=== PATIENT | female | born 1940 | race African-American/Black ===

== ENCOUNTER 2016-07-18 19:50 | Emergency (ER) | payer OTHER ==
[2016-07-18 19:57] VITALS: TEMP 98.6; BMI 36.6
[2016-07-18 19:58] VITALS: BP 148/82; PULSE 60
--- NOTE | 2016-07-18 21:16 | PDOC ---
History of Present Illness - General History Source: Patient Exam Limitations: No Limitations - History of Present Illness Initial Comments: 07/18/16 21:20 The patient is a 76 year old female, with a significant past medical history of hypertension, colon polyps, GERD, and diverticulosis, who presents to the emergency department s/p mechanical fall at approximately 14:30. Patient reports she was walking down the steps in the parking lot when she tripped and she fell down approximately 4 steps. She states she tried to hold onto the handrails but was unsuccessful. Patient reports falling onto her right knee, but she is experiencing pain in her legs bilaterally. She reports associated head trauma but denies LOC. She reports pain in her knees bilaterally, her left shoulder, and her neck. Patient reports she is able to walk and bare weight on her legs. The patient denies any chest pain, shortness of breath, diaphoresis, or palpitations. The patient denies any cough, headache, dizziness, fever, or chills. The patient denies any abdominal pain, nausea, vomiting, diarrhea, or constipation. The patient denies any recent travel or sick contacts. Allergies: None reported. Past Surgical History: Left knee replacement. Social History: Non-smoker. Denies alcohol or drug use. <Hermann Ward - Last Filed: 07/18/16 21:41> <Christina Raphael - Last Filed: 07/19/16 04:48> - General Chief Complaint: Pain, Acute Stated Complaint: FALL Time Seen by Provider: 07/18/16 19:54 Past History <Hermann Ward - Last Filed: 07/18/16 21:41> - Past Medical History Anemia: No Asthma: No Cancer: No Cardiac Disorders: No CVA: No COPD: No CHF: No Dementia: No Diabetes: No GI Disorders: Yes (H/O COLON POLYPS, ACID REFLUX, DIVERITCULOSIS) Disorders: No HTN: Yes Hypercholesterolemia: No Liver Disease: No Seizures: No Thyroid Disease: No - Surgical History Abdominal Surgery: No Appendectomy: No Cardiac Surgery: No Cholecystectomy: No Lung Surgery: No Neurologic Surgery: No Orthopedic Surgery: Yes (LEFT KNEE REPLACEMENT) - Psycho/Social/Smoking Cessation Hx Anxiety: No Suicidal Ideation: No Smoking History: Never smoked Have you smoked in the past 12 months: No If you are a former smoker, when did you quit?: 1996 Information on smoking cessation initiated: No Hx Alcohol Use: No Drug/Substance Use Hx: No Substance Use Type: None Hx Substance Use Treatment: No <Christina Raphael - Last Filed: 07/19/16 04:48> - Past Medical History Allergies/Adverse Reactions: Allergies Allergy/AdvReac Type Severity Reaction Status Date / Time No Known Allergies Allergy Verified 07/18/16 19:51 Home Medications: Ambulatory Orders Losartan/Hydrochlorothiazide [Losartan-Hctz 100-25 mg Tab] 1 each PO HS Diclofenac Sodium [Voltaren -] 75 mg PO BID PRN #10 tablet. 07/18/16 Review of Systems - Review of Systems Able to Perform ROS?: Yes Comments:: 07/18/16 21:21 CONSTITUTIONAL: Absent: fever, no chills, no fatigue EYES: Absent: visual changes ENT: Absent: ear pain, no sore throat CARDIOVASCULAR: Absent: chest pain, no palpitations RESPIRATORY: Absent: cough, no SOB GI: Absent: abdominal pain, no nausea, no vomiting, no constipation, no diarrhea GENITOURINARY: Absent: dysuria, no frequency, no hematuria MUSKULOSKELETAL: Present: +leg pain bilaterally, +knee pain bilaterally, +left shoulder pain, + neck pain Absent: back pain, no myalgia SKIN: Absent: rash NEURO: Absent: headache <Ward,Giomilsy - Last Filed: 07/18/16 21:41> *Physical Exam - Vital Signs Last Vital Signs Temp Pulse Resp BP Pulse Ox 98.6 F 60 17 148/82 100 07/18/16 19:50 07/18/16 19:50 07/18/16 19:50 07/18/16 19:50 07/18/16 19:50 - Physical Exam Comments: 07/18/16 21:37 GENERAL: The patient is awake, alert, and fully oriented, in no acute distress. HEAD: Mild tenderness of the left occipital parietal area without abrasion, laceration or contusion. No other facial or head abnormalities EYES: Pupils equal, round and reactive to light, extraocular movements intact, sclera anicteric, conjunctiva clear with no pallor. ENT: Ears normal, nares patent, oropharynx clear without exudates. Moist mucous membranes. NECK: Mild tenderness to the central portion of C3-C5. Normal range of motion, supple without lymphadenopathy, JVD, or masses. LUNGS: Breath sounds equal, clear to auscultation bilaterally. No wheeze/ crackles. HEART: Regular rate and rhythm, normal S1 and S2 without murmur or rub. ABDOMEN: Soft/nontender/nondistended. BS wnl. No guarding or rebound. No palpable masses. No hepatosplenomegaly. EXTREMITIES: Tenderness of the left humeral head and proximal portion of the left clavicle. Bilateral hips were nontender with nonpainful range of motion. Mild tenderness and erythema of the bilateral anterior portion of the knees, without deformities or ecchymosis. Nonbleeding 1 cm abrasion to the left midtibial surface with surrounding tenderness and mild edema. Bilateral lower extremity edema. No clubbing or cyanosis. No cords, erythema, or tenderness. NEUROLOGICAL: Cranial nerves II through XII grossly intact. Normal speech, normal gait. PSYCH: Normal mood, normal affect. SKIN: Warm, Dry, normal turgor, no rashes or lesions noted. <Hermann Ward - Last Filed: 07/18/16 21:41> - Vital Signs Last Vital Signs Temp Pulse Resp BP Pulse Ox 98.6 F 60 17 148/82 100 07/18/16 19:50 07/18/16 19:50 07/18/16 19:50 07/18/16 19:50 07/18/16 19:50 <Christina Raphael - Last Filed: 07/19/16 04:48> Medical Decision Making - Medical Decision Making Documentation has been prepared under my direction and personally reviewed by me in its entirety. I attest that this documented accurately reflects all work, treatment, procedures and medical decision making performed by me. As noted above, this 76-year-old woman presents with fall down 4 stairs earlier today when her right knee gave out. Patient had no loss of consciousness but did hit her left shoulder/left side of head when she fell. Exam shows some tenderness of left parieto-occipital area/left shoulder and bilateral knees/ left lower leg. Noncontrast head CT/left shoulder/eye lateral knee/left tib-fib x-rays show no significant abnormality Cervical spine x-ray shows moderate degenerative disc disease with some posterior spur formation. However, no compression fracture/subluxation is seen. There is no prevertebral soft tissue swelling. Results discussed with the patient and her daughters. The patient did not want any anti-inflammatory or analgesic medications currently. She states that she will take [id number] ibuprofen at home. She did agree to diclofenac 75 mg as needed twice a day prescription to be sent to her pharmacy. Soft collar will be given to the patient. The patient should follow-up with her general doctor within the next 3 days. Patient's orthopedic surgeon is Dr. Olsen, with whom she should follow up if she has any persistent pain, especially knee pain. Patient will return to the emergency room if she has severe pain/headache/ nausea or excessive sleepiness <Christina Raphael - Last Filed: 07/19/16 04:48> *DC/Admit/Observation/Transfer - Attestations Scribe Attestion: 07/18/16 21:22 Documentation prepared by Hermann Ward, acting as biomedical engineering supervisor for Christina Raphael MD. <Hermann Ward - Last Filed: 07/18/16 21:41> <Christina Raphael - Last Filed: 07/19/16 04:48> Diagnosis at time of Disposition: Contusion of left shoulder Qualifiers: Encounter type: initial encounter Qualified Code(s): S40.012A - Contusion of left shoulder, initial encounter Contusion of left lower leg Qualifiers: Encounter type: initial encounter Qualified Code(s): S80.12XA - Contusion of left lower leg, initial encounter Neck strain Qualifiers: Encounter type: initial encounter Qualified Code(s): S16.1XXA - Strain of muscle, fascia and tendon at neck level, initial encounter - Discharge Dispostion Disposition: HOME Condition at time of disposition: Good - Prescriptions Prescriptions: Diclofenac Sodium [Voltaren -] 75 mg PO BID PRN #10 tablet.dr TOLBERT Reason: Pain - Referrals Referrals: Josef Olsen MD [Staff Physician] - - Patient Instructions Printed Discharge Instructions: DI for Contusion, DI for Cervical Muscle Strain Additional Instructions: soft neck collar as needed Diclofenac 75mg twice a day as needed(take with food) followup with Dr Olsen if you continue to have knee pain see your general doctor within 5 days
== END 2016-07-18 23:39 | disposition home or self-care (01) ==
LOC: FER 19:50
DX: S40.012A Contusion of left shoulder, initial encounter (principal); S80.12XA Contusion of left lower leg, initial encounter; S16.1XXA Strain of muscle, fascia and tendon at neck level, initial encounter; I10 Essential (primary) hypertension; Z87.891 Personal history of nicotine dependence; Z96.652 Presence of left artificial knee joint; W10.9XXA Fall (on) (from) unspecified stairs and steps, initial encounter; Y93.89 Activity, other specified; Y92.9 Unspecified place or not applicable
CPT/HCPCS: 70450-TC; 72050-TC; 73030-TC-LT; 73560-TC-LT; 73560-TC-RT; 73590-TC-LT; 99282-25